=== PATIENT | female | born 1950 | race Caucasian/White ===

== ENCOUNTER 2022-06-27 15:04 | Outpatient (REF) | payer MEDICARE, SELFPAY | END 2022-06-27 15:05 | disposition home or self-care (01) | LOC: HO.CT 15:04 | PROVIDERS: Absent Provider Internal Medicine; PCP Internal Medicine; Visit Provider Internal Medicine | DX: Z13.89 Encounter for screening for other disorder (principal) ==

== ENCOUNTER 2022-08-06 09:07 | Outpatient (REF) | payer MEDICARE, SELFPAY ==
--- NOTE | ~2022-08-06 | CT_ITS ---
EXAMINATION: CT ANGIOGRAM ABDOMEN AND PELVIS CLINICAL INFORMATION: Abdominal pain, nausea, vomiting and diarrhea. COMPARISON: None TECHNIQUE: Multiple axial images were obtained through the abdomen and pelvis following the administration of 80 mL of Omnipaque 350 intravenous contrast. Additional 2-D coronal and sagittal reformatted images and axial 3-D maximum intensity projection MIP images are generated on the CT workstation. This CT examination was performed using dose optimization techniques as appropriate, variously including the following: *Automated exposure control. *Adjustment of mA and/or kV according to patient size (this includes techniques or standardized protocols for targeted exams where dose is matched to indication/reason for exam; i.e. extremities or head). *Use of iterative reconstruction technique. DLP: 294 mGy-cm FINDINGS VASCULAR FINDINGS: The abdominal aorta and iliofemoral vessels are unremarkable aside from mild calcific plaque. No aneurysms, dissections or stenoses are seen. There is variant anatomy at the celiac with a separate origin of the left gastric from the aorta. The branch supplying the right hepatic and splenic artery is widely patent. There is [id number] stenosis of the proximal SMA. The ADRIA is widely patent. There is a single right-sided renal artery which is widely patent. There are 2 renal arteries on the left with a tiny accessory upper pole branch, both widely patent. The portal venous system cannot be assessed on this exam as this was ordered as a CT angiogram NONVASCULAR FINDINGS: LUNG BASES: The visualized lung bases are unremarkable. LIVER, GALLBLADDER, AND BILIARY TREE: The liver is normal in size, shape, and attenuation. No focal hepatic lesion or biliary ductal dilatation is present. The gallbladder is unremarkable with no evidence of radiopaque gallstones, gallbladder wall thickening, or obvious pericholecystic inflammatory changes. PANCREAS: Unremarkable. SPLEEN: Unremarkable. ADRENAL GLANDS: Unremarkable. KIDNEYS AND URETERS: The kidneys are normal in size, shape, and attenuation. No hydronephrosis, hydroureter, or calculi seen. No perinephric stranding. BLADDER: Unremarkable. GASTROINTESTINAL TRACT: There is thickening near the gastric fundus and distal esophagus. Given the history, an upper GI or upper endoscopy could be performed. The small and large bowel are unremarkable aside from some colonic diverticula without diverticulitis. The appendix is unremarkable. ABDOMINAL WALL: No significant hernia is appreciated. LYMPH NODES: No retroperitoneal lymphadenopathy. PELVIC VISCERA: Unremarkable. OSSEOUS STRUCTURES: Minimal degenerative changes in the spine. CT/CT angio abdomen pelvis IMPRESSION: 1. No significant vascular abnormality is seen. There is a mild narrowing of the SMA but all other vessels are widely patent and there is no changes to suggest bowel ischemia. 2. Incidental note made of thickening of the distal esophagus and gastric fundus. Upper GI or upper endoscopy could be performed for further evaluation. Fleischner guidelines were followed.
[2022-08-06] MEDS: iohexoL 350 MG/ML 100 ML INFUS..BTL IV (10:31)
[2022-08-07 10:37] LABS: Creatinine POC 0.7 mg/dL (0.5-1.4); GFR POC > 60
== END 2022-08-06 09:08 | disposition home or self-care (01) ==
LOC: HO.CT 09:07
PROVIDERS: PCP Internal Medicine; Visit Provider Internal Medicine
DX: R10.13 Epigastric pain (principal); R19.7 Diarrhea, unspecified; R11.2 Nausea with vomiting, unspecified
CPT/HCPCS: 74174; 82565; Q9967

== ENCOUNTER 2022-09-24 10:07 | Outpatient (REF) | payer MEDICARE, SELFPAY ==
--- NOTE | ~2022-09-24 | US_ITS ---
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 FINDINGS: ABDOMINAL AORTA: The visualized proximal segment is normal in caliber. Atherosclerotic wall calcifications are seen. Proximal to the superior mesenteric artery, peak systolic velocity measures 15.5 cm/s. Distal to the superior mesenteric artery, peak systolic velocity measures 70.2 cm/s. Biphasic waveforms are seen. CELIAC ARTERY: Patent with normal waveforms in both the supine and sitting position with inspiration. Peak systolic velocity in the supine measures 189 cm/s. Peak systolic velocity erect measures 203 cm/s. SUPERIOR MESENTERIC ARTERY: Elevated velocity is seen in the proximal superior mesenteric artery measuring 410 cm/s consistent with a moderate to severe stenosis. Patent arterial flow with normal waveforms seen in the mid and distal superior mesenteric artery with normal velocities. INFERIOR MESENTERIC ARTERY: Patent with normal waveforms and velocities measuring peak systolic velocity 183 cm/s. HEPATIC ARTERIES: Normal upstroke and diastolic flow. Peak systolic velocity measures 186 cm/s SPLENIC ARTERY: Normal upstroke and diastolic flow. Peak systolic velocity measures 170 cm/s US/US SMA IMPRESSION: Markedly elevated velocity at the ostium of the superior mesenteric artery consistent with a moderate to severe stenosis
== END 2022-09-24 10:08 | disposition home or self-care (01) ==
LOC: HO.US 10:07
PROVIDERS: PCP Internal Medicine; Visit Provider Internal Medicine
DX: R10.9 Unspecified abdominal pain (principal); R93.5 Abnormal findings on diagnostic imaging of other abdominal regions, including retroperitoneum; K55.1 Chronic vascular disorders of intestine
CPT/HCPCS: 93976

== ENCOUNTER → 2023-01-23 14:21 | Outpatient (BNVA) | payer MEDICARE, SELFPAY | PROVIDERS: PCP Internal Medicine; Visit Provider Surgery Vascular Surgery | DX: K55.1 Chronic vascular disorders of intestine (principal) | CPT/HCPCS: 99212 ==

== ENCOUNTER 2023-02-28 06:43 | Day surgery (SDC) | payer MEDICARE, SELFPAY ==
--- NOTE | 2023-02-27 12:16 | P.CONAN_ITS ---
HPI - Anesthesia Eval Consult details Narrative: 72yo F for Upper Endoscopy [facility] Past Medical History Medical History Anxiety Exercise-induced asthma Cathy's disease Kidney stones Mast cell disorder Pulmonary embolism Superior mesenteric artery atherosclerosis Surgical History Surgical History H/O partial thyroidectomy (~11/2022) History of appendectomy History of laparotomy History of tonsillectomy Social History Social History Are you a primary certified caregiver to a significant other at home: No Do you presently have visiting nurse or other home services: No Patient Tobacco Use Status: Former Tobacco user Quit Date: 43 yrs old Tobacco use type: Cigarette Smoked in Last 30 Days: No Patient Interested in Nicotine Replacement: No Patient Given Instructions on How to Stop Smoking: No Second Hand Smoke Exposure: No Use of substances other than those prescribed or required for medical reasons: Yes Substance Use Frequency: Occasionally Have you been hit, kicked, punched, or otherwise hurt by someone within the past year? If so, by whom?: No Are you DNR?: No Advance Directives: No Advance Directives Information Provided: Yes Recently lost weight without trying: No Nutrition Risks: No Nutritional Risk Meds Allergies Allergy/AdvReac Type Severity Reaction Status Date / Time codeine Allergy Intermediate itching Verified 01/23/23 14:31 environmental allergies Allergy Intermediate Nasal Verified 01/23/23 14:31 congestion penicillin G Allergy Intermediate hives Verified 01/23/23 14:31 Sulfa (Sulfonamide Allergy Intermediate Hives Verified 01/23/23 14:31 Antibiotics) sulfamethoxazole Allergy Intermediate Hives Verified 01/23/23 14:31 [From Bactrim] trimethoprim [From Bactrim] Allergy Intermediate Hives Verified 01/23/23 14:31 Home Medications Medication Instructions Recorded Confirmed Last Taken Type budesonide-formoterol HFA 80 inhalation 01/23/23 Unknown History mcg-4.5 mcg/actuation aerosol inhaler (Symbicort) bupropion HCl 150 mg tablet,12 hr 150 mg PO DAILY 01/23/23 Unknown History sustained-release cromolyn 100 mg/5 mL oral mg PO 01/23/23 02/27/23 History concentrate famotidine 20 mg tablet 40 mg PO BID 01/23/23 Unknown History fluticasone propionate 50 spray intranasal 01/23/23 Unknown History mcg/actuation nasal spray,suspension gabapentin 100 mg capsule 100 mg PO TID 01/23/23 Unknown History hyoscyamine sulfate 0.125 mg tablet 0.125 mg PO QID 01/23/23 Unknown History levalbuterol tartrate 45 2 puff inhalation Q4-6H 01/23/23 Unknown History mcg/actuation aerosol inhaler ondansetron 4 mg disintegrating 2 mg PO Q6-8H PRN 01/23/23 Unknown History tablet Exam Exam Date and Time: February 27, 2023 1216 Assessment and Plan Assessment Anesthesia Assessment: Chart Reviewed
[2023-02-28 08:13] VITALS: BP 146/92; PULSE 90; RESP 18; TEMP 36.6; O2SAT 97; BMI 21.9
[2023-02-28 09:24] VITALS: BP 150/81; PULSE 78; RESP 16; TEMP 36.1; O2SAT 99
--- NOTE | 2023-02-28 09:26 | PM.OP ---
Brief Operative Note Date of Service: 02/28/23 Pre-op diagnosis: GERD, Abnormal CT of stomach Post-op diagnosis: other (Hiatal hernia, GERD) Procedure: EGD with biopsies Surgeon: Joby Jackson Anesthesia: MAC Was an Finishing Lab Technician used for this Procedure?: No Estimated blood loss (mL): 2.0 Pathology: other (A. Descending duodenum B. Gastric antrum C. EG Junction at 33cm) Condition: stable Disposition: PACU
[2023-02-28 09:39] VITALS: BP 168/86; PULSE 75; RESP 18; TEMP 36.5; O2SAT 98
--- NOTE | 2023-02-28 10:29 | OP_ITS ---
DATE OF SERVICE: 02/28/2023 SURGEON: Joby Jackson MD INDICATIONS: The patient presents for evaluation of abdominal discomfort, abnormal CT scan of the stomach, and gastroesophageal reflux. Full consent has been obtained from her for this, including risks of bleeding and perforation. PREOPERATIVE DIAGNOSIS: POSTOPERATIVE DIAGNOSIS: PROCEDURE PERFORMED: Esophagogastroduodenoscopy with biopsies. ESTIMATED BLOOD LOSS: COMPLICATIONS: ANESTHESIA: Monitored anesthesia care. ASSISTANTS: SPECIMENS: PREOPERATIVE DIAGNOSES: Abnormal CT scan of stomach, abdominal pain, gastroesophageal reflux. POSTOPERATIVE DIAGNOSES: Abnormal CT scan of stomach, abdominal pain, gastroesophageal reflux, hiatal hernia, rule out celiac disease, rule out gastritis and H pylori, rule out Barrera's esophagus. DESCRIPTION OF PROCEDURE: The patient was placed in the left lateral decubitus position. The Olympus video gastroscope was passed in the posterior oropharynx and upper esophagus under direct vision. The scope was passed slowly to the distal esophagus. The gastroesophageal junction appeared at 33 cm. There was some slight irregularity consistent with reflux and possibly tiny areas of Barrera's mucosa. There was no esophagitis. The scope entered the stomach. There was a small to moderate-sized hiatal hernia. The scope was advanced to the pylorus, and the duodenum was cannulated to the descending portion. The duodenum including the bulb appeared normal without mass or ulceration. Biopsies were obtained from the 2nd and 3rd portions of duodenum. The scope was withdrawn back in the stomach. The gastric antrum and body had some minimal areas of erythema but no erosions nor ulceration. There was good peristalsis. The scope was retroflexed visualizing the proximal stomach carefully which appeared normal, without any sign of mass or ulceration. The scope was straightened. Biopsies were obtained from the gastric antrum. The scope was then withdrawn back into the esophagus. Biopsies were obtained at the EG junction at 33 cm. Proximal to that, the esophageal mucosa appeared normal. The scope was withdrawn from the patient. She tolerated the procedure well and was returned to the recovery area in stable condition. IMPRESSION: 1. Hiatal hernia, gastroesophageal reflux, rule out Barrera's esophagus. 2. Rule out gastritis and/or Helicobacter pylori. 3. Rule out celiac disease. PLAN: The results of the biopsies will be checked. She reports that she has improved on omeprazole, and I did advise her to continue that. She was advised to see me again in the Fall for a followup visit. She was advised not to use any aspirin or NSAIDs for 1 more week. This has been discussed with her . MD EVANGELINA Grayson/JUAN R / [id number] MTDD
== END 2023-02-28 10:36 | disposition home or self-care (01) ==
PROVIDERS: PCP Internal Medicine; Visit Provider Internal Medicine
PROC: 0DJ08ZZ Inspection of Upper Intestinal Tract, Via Natural or Artificial Opening Endoscopic (ICD-10-PCS; CPT 43235; principal; 2023-02-28 08:30)
DX: K21.9 Gastro-esophageal reflux disease without esophagitis (principal); K29.50 Unspecified chronic gastritis without bleeding; K55.1 Chronic vascular disorders of intestine; K44.9 Diaphragmatic hernia without obstruction or gangrene; F41.1 Generalized anxiety disorder; E89.0 Postprocedural hypothyroidism; E06.3 Autoimmune thyroiditis; N20.0 Calculus of kidney; D89.40 Mast cell activation, unspecified; J45.990 Exercise induced bronchospasm; Z79.51 Long term (current) use of inhaled steroids; Z79.899 Other long term (current) drug therapy; Z86.711 Personal history of pulmonary embolism; Z98.890 Other specified postprocedural states; Z87.891 Personal history of nicotine dependence; Z88.0 Allergy status to penicillin; Z88.2 Allergy status to sulfonamides; Z88.8 Allergy status to other drugs, medicaments and biological substances
CPT/HCPCS: 43239; 88305; 88342; J2250